=== PATIENT | female | born 1990 | race Caucasian/White ===

== ENCOUNTER 2020-09-04 09:39 | Emergency (ER) | payer OTHER ==
[~2020-09-04] VITALS: Ht 162.6 cm; Wt 61.7 kg
[~2020-09-04 09:39] MED LIST: ALBU90OI
== END 2020-09-04 11:47 | disposition home or self-care (01) ==
LOC: ER 09:39
DX: R59.0 Localized enlarged lymph nodes (principal); S43.402A Unspecified sprain of left shoulder joint, initial encounter; X58.XXXA Exposure to other specified factors, initial encounter; Z79.899 Other long term (current) drug therapy
CPT/HCPCS: 93971; 99283-25